=== PATIENT | female | born 1965 | race Caucasian/White ===

== ENCOUNTER 2017-03-01 09:06 | Emergency (ER) | payer OTHER ==
[~2017-03-01] VITALS: Ht 165.1 cm; Wt 79.4 kg
[~2017-03-01 09:06] MED LIST: ACET-6134 PO; ALBU-136 IH; ALPR0.5T2 PO; ATEN25TA7 PO; CYCL-405 PO; HYDR-4452 PO
[2017-03-01 09:24] VITALS: BP 137/77
--- NOTE | 2017-03-01 09:29 | NUR ---
Patient ambulated to bed 8. RN evaluating patient at bedside.
--- NOTE | 2017-03-01 09:35 | NUR ---
PT PRESENTS TO ER W/C/O HEADACHE X1 MONTH INTERMITTENTLY. HX ASTHMA, HTN, CHRONIC LBP. DENIES V/D; SKIN IS PINK/WARM/DRY; AAOX4 WITH EVEN AND STEADY GAIT; LUNGS CLEAR BL; HR EVEN AND REGULAR; PT DENIES ANY FEVER, CP, SOB, OR COUGH AT THIS TIME; PATIENT STATES PAIN OF 8/10 AT THIS TIME; VSS; PATIENT POSITIONED FOR COMFORT; HOB ELEVATED; BEDRAILS UP X2; BED DOWN. ER MD MADE AWARE OF PT STATUS.
[2017-03-01] MEDS ORDERED: METOCLOPRAMIDE 10 MG TAB PO ONE (09:55)
[2017-03-01] MEDS ORDERED: KETOROLAC 60 MG/2 ML VIAL IM ONE (09:55)
[2017-03-01 10:27] LABS: BASOPHILS # (AUTO) 0.1 K/uL (0.00-0.22); EOSINOPHILS # (AUTO) 0.3 K/uL (0-0.4); EOSINOPHILS % (AUTO) 5.1 % (0.0-4.0); HEMATOCRIT 43.2 % (36-48); HEMOGLOBIN 14.1 g/dL (12.0-16.0); LYMPHOCYTES # (AUTO) 1.6 K/uL (2.5-16.5); LYMPHOCYTES % (AUTO) 28.4 % (20.5-51.1); MEAN CORPUSCULAR HEMOGLOBIN 28 pg (27-31); MEAN CORPUSCULAR HGB CONC 33 g/dL (33-37); MEAN CORPUSCULAR VOLUME 85 fL (80-94); MONOCYTES # (AUTO) 0.5 K/uL (0.8-1.0); MONOCYTES % (AUTO) 7.9 % (1.7-9.3); NEUTROPHILS # (AUTO) 3.2 K/uL (1.8-7.7); NEUTROPHILS % (AUTO) 56.6 % (42.2-75.2); PLATELET COUNT (AUTO) 272 K/uL (140-450); RED BLOOD CELL COUNT(AUTO) 5.07 MIL/uL (4.20-5.40); RED CELL DISTRIBUTION WIDTH 13.1 % (11.6-13.7); WHITE BLOOD COUNT (AUTO) 5.7 K/uL (4.8-10.8)
[2017-03-01 10:37] LABS: CARBON DIOXIDE 28.8 mmol/L (21-32); POTASSIUM 3.8 mmol/L (3.5-5.1)
[2017-03-01] MEDS ORDERED: ONDANSETRON 4 MG ODT PO ONE (10:50)
[2017-03-01 11:46] VITALS: BP 131/72
--- NOTE | 2017-03-01 11:46 | NUR ---
Patient discharged with v/s stable. Written and verbal after care instructions given and explained. Patient alert, oriented and verbalized understanding of instructions. Ambulatory with steady gait. All questions addressed prior to discharge. ID band removed. Patient advised to follow up with PMD. Rx of REGLAN, MOTRIN given. Patient educated on indication of medication including possible reaction and side effects. Opportunity to ask questions provided and answered.
[2017-03-01 12:19] LABS: APPEARANCE,URINE CLEAR (CLEAR); BILIRUBIN,URINE NEGATIVE (NEGATIVE); BLOOD, URINE TRACE-L (NEGATIVE); COLOR,URINE YELLOW (YELLOW); LEUKOCYTE ESTERASE ,URINE NEGATIVE (NEGATIVE); NITRITE, URINE NEGATIVE (NEGATIVE); UGLUCOSE NEGATIVE (NEGATIVE)
[2017-03-01 12:34] LABS: CALCIUM OXALATE CRYSTALS,UR 0-10 /HPF (None Seen); RBC,URINE 0-5 (RARE) /HPF (0-5); WBC,URINE 0-5 (RARE) /HPF (0-5)
== END 2017-03-01 11:46 | disposition home or self-care (01) ==
LOC: MED 09:06
DX: R51 Headache (principal); H53.8 Other visual disturbances; R20.2 Paresthesia of skin; J45.909 Unspecified asthma, uncomplicated; I10 Essential (primary) hypertension; Z86.73 Personal history of transient ischemic attack (TIA), and cerebral infarction without residual deficits; Z79.899 Other long term (current) drug therapy; Z88.5 Allergy status to narcotic agent
CPT/HCPCS: 36415; 70450; 80048; 81001; 85025; 96372; 99285; J1885; J8597; Q0163; S0119

== ENCOUNTER 2017-03-07 11:52 | Emergency (ER) | payer OTHER ==
[~2017-03-07] VITALS: Ht 165.1 cm; Wt 80.4 kg
[2017-03-07 11:56] VITALS: BP 118/81
--- NOTE | 2017-03-07 12:09 | NUR ---
51/F PRESENT TO ER C/O MID BACK x 2 DAYS. PT STATES SHE SLIPPED ON GRASS. PT STATES SHE HAS HX: ASTHMA AND HTN. DENIES N/V/D; SKIN IS PINK/WARM/DRY; AAOX4 WITH EVEN AND STEADY GAIT; LUNGS CLEAR BL; HR EVEN AND REGULAR; PT DENIES ANY FEVER, CP, SOB, OR COUGH AT THIS TIME; PATIENT STATES PAIN OF 8/10 AT THIS TIME; VSS; PATIENT POSITIONED FOR COMFORT; HOB ELEVATED; BEDRAILS UP X2; BED DOWN. ER MADE AWARE OF PT STATUS. Addendum: 03/07/17 at 1232 by [email or web address] PT STS JUST USES CANE X 2 DAYS BECAUSE MID BACK PAIN.
--- NOTE | 2017-03-07 12:17 | NUR ---
Patient being evaluated by DR RICHTER at bedside.
[2017-03-07] MEDS ORDERED: KETOROLAC 30 MG/ML VIAL IM ONE (12:20)
[2017-03-07] MEDS ORDERED: HYDROcodone/APAP 5/325 MG 1 TAB TAB PO ONE (12:20)
--- NOTE | 2017-03-07 12:52 | NUR ---
PT TAKEN TO X RAY.
[2017-03-07 13:31] VITALS: BP 119/78
--- NOTE | 2017-03-07 13:31 | NUR ---
Patient discharged with v/s stable. Written and verbal after care instructions given and explained. Patient alert, oriented and verbalized understanding of instructions. Ambulatory with steady gait. All questions addressed prior to discharge. ID band removed. Patient advised to follow up with PMD. Rx of NAPROSYN & NORCO given. Patient educated on indication of medication including possible reaction and side effects. Opportunity to ask questions provided and answered.
== END 2017-03-07 13:31 | disposition home or self-care (01) ==
LOC: MED 11:52
DX: M54.41 Lumbago with sciatica, right side (principal); J45.909 Unspecified asthma, uncomplicated; F17.210 Nicotine dependence, cigarettes, uncomplicated; Z71.6 Tobacco abuse counseling; Z88.5 Allergy status to narcotic agent; Z86.73 Personal history of transient ischemic attack (TIA), and cerebral infarction without residual deficits
CPT/HCPCS: 73502; 81002; 81025; 96372; 99284; J1885

== ENCOUNTER 2017-06-08 18:23 | Emergency (ER) | payer OTHER ==
[~2017-06-08] VITALS: Ht 165.1 cm; Wt 77.1 kg
[~2017-06-08 18:23] MED LIST changes: +ACET-787 PO; -HYDR-4452 PO
[2017-06-08 18:42] VITALS: BP 147/97
--- NOTE | 2017-06-08 18:46 | NUR ---
PT IN TRIAGE, EKG DONE.
--- NOTE | 2017-06-08 18:50 | NUR ---
EKG done, showned to Dr. Gamez and castroay patient to send patient to the lobby. Pt waiting in ER lobby for a bed.
--- NOTE | 2017-06-08 19:30 | NUR ---
PATIENT SITTING COMFORTABLY WITH NO RESPIRATORY DISTRESS.
--- NOTE | 2017-06-08 20:00 | NUR ---
STILL SITTING COMFORTABLE, ERMD NOTED.
--- NOTE | 2017-06-08 20:34 | NUR ---
PATIENT CALLED TO PUT ON BED, NO RESPONSE. PATIENT LEFT WITHOUT BEING SEEN BY DR. BEAL. NO FURTHER CARE PROVIDED FOR PATIENT.
== END 2017-06-08 20:34 | disposition left against medical advice (07) ==
LOC: MED 18:23
DX: R07.89 Other chest pain (principal); R05 Cough; R50.9 Fever, unspecified; R09.89 Other specified symptoms and signs involving the circulatory and respiratory systems; Z53.21 Procedure and treatment not carried out due to patient leaving prior to being seen by health care provider